=== PATIENT | male | born 1950 | race Caucasian/White ===

== ENCOUNTER 2018-08-29 22:10 | Inpatient (IN) | payer OTHER ==
[~2018-08-29] VITALS: Ht 182.9 cm; Wt 114.8 kg
--- NOTE | ~2018-08-29 | HC ---
[facility] [address] [place] [address] CONSULTATION Name: PEPEGRACE Concha Room #: 236-P [facility] IN M.R.#: [id number] Admission: 08/29/18 ������������������ Attend Phys: Zuleyka Godinez Discharge: ������������������ Date of : 50 Report #: [id number] THIS REPORT FOR: //name// CC: NO PCP Barry Hernandez REASON FOR CONSULTATION: Acute kidney injury. The details of the history were obtained from the chart. The patient is not able to provide me with the history. HISTORY OF PRESENT ILLNESS: A 68-year-old who presented to the emergency room in an unconscious status. He had issues with abdominal pain, rectal bleeding. CPR was initiated and EMS was called. He has had multiple arrests. He was intubated, admitted to the ICU. CT revealed free air in the soft tissue in the perineal area with what seems to be localized perforation. The patient's creatinine on presentation was 1.6. I am not able to obtain any previous values on him. His medical history is very vague. With his arrest, he was initiated on hypothermia. Urine output has significantly dropped in the last 24 hours. Creatinine is up to 3.9. The patient has had multiple organ failures with severe acidosis. The pH was down to 7.2. White blood cell count was up to 12.6. REVIEW OF SYSTEMS: Unobtainable given the patient's mental status. PAST MEDICAL HISTORY: Unobtainable given the patient's mental status. ALLERGIES: Unobtainable given the patient's mental status. MEDICATIONS AN OUTPATIENT: None. FAMILY HISTORY: Unobtainable given the patient's mental status. PHYSICAL EXAMINATION: GENERAL: The patient is intubated on max pressors. VITAL SIGNS: Blood pressure is 124/55. He is on Danny-Synephrine, Levophed, vasopressin. HEAD AND NECK: ET tube. Pupils fixed and constricted. CHEST: Decreased air entry bilaterally. CARDIOVASCULAR: No rub. ABDOMEN: Soft. LOWER EXTREMITIES: No edema. LABORATORY DATA: Reviewed. White blood cell count 12.6, hemoglobin 10.4, platelets 101. Sodium 139, potassium 4.6, BUN is 51, creatinine is 3.9. Cultures are negative so far. [facility] [address] [place] [address] CONSULTATION Name: GRACE PEPE Room #: 236-P [facility] IN ..#: [id number] Admission: 08/29/18 ������������������ Attend Phys: Zuleyka Godinez Discharge: ������������������ Date of : 50 Report #: [id number] abdomen reviewed consolidation consistent with pneumonia, gas present adjacent to the rectum. ASSESSMENT, IMPRESSION AND PLAN: 1. Post-arrest. 2. Post-hypothermia protocol. 3. Acidosis. 4. Multiorgan failure. 5. Acute kidney injury. 6. Respiratory failure. 7. Localized perforation of the rectal area. 8. Very poor prognosis, really nothing to be done from the renal perspective given his mental status and the multiorgan failure, should gear towards palliative and comfort care. I will address with his family members. Meanwhile, continue with the hemodynamic support. I will reformulate his fluid to address his acidosis. ��������������������������������������������� ���������������������������������������� By: ��������������������������������������������� 0837 0037 Nelida Cuevas MD /nt
[2018-08-29 22:12] VITALS: BP 130/55
[2018-08-29 22:27] LABS: BE(vivo) -14.9 mmol/L (-2 to +3); HCO3 17.7 mmol/L (22.0-26.0); PO2 174.2 mmHg (80.0-100.0); sO2 98.2 % (92.0-98.0)
[2018-08-29 22:28] LABS: PCO2 74.6 mmHg (35.0-45.0)
[2018-08-29 22:29] LABS: pH 6.992 (7.360-7.450)
[2018-08-29 22:47] LABS: URINE BILIRUBIN NEGATIVE (Negative); URINE BLOOD NEGATIVE (Negative); URINE CLARITY CLEAR; URINE COLOR YELLOW; URINE GLUCOSE-RANDOM* NEGATIVE (Negative); URINE KETONES NEGATIVE (Negative); URINE LEUKOCYTES-REFLEX NEGATIVE (Negative); URINE NITRITE-REFLEX NEGATIVE (Negative); URINE PROTEIN (DIPSTICK) NEGATIVE (Negative); URINE UROBILINOGEN 0.2 E.U./dl (0.2-1.0)
[2018-08-29 22:54] LABS: ANION GAP 18 mmol/L (7-16); BUN 16 mg/dL (7-18); CALCIUM 8.8 mg/dL (8.5-10.1); CHLORIDE 97 mmol/L (98-107); CO2 20 mmol/L (21-32); CREATININE 1.8 mg/dL (0.7-1.3); GLUCOSE 329 mg/dL (74-106); POTASSIUM 3.2 mmol/L (3.5-5.1); SODIUM 135 mmol/L (136-145)
[2018-08-29 22:56] LABS: APTT 21.5 Seconds (24.5-32.8); PROTIME 10.6 Seconds (9.3-11.4)
[2018-08-29 22:56] LABS: AMP/METHAMP Negative (Negative); BARBITURATES Negative (Negative); BENZODIAZEPINES Negative (Negative); COCAINE Negative (Negative); METHADONE Negative (Negative); OPIATES Negative (Negative); PCP Negative (Negative)
[2018-08-29 22:58] LABS: HEMATOCRIT 38.9 % (42.0-52.0); HEMOGLOBIN 12.7 gm/dL (14.0-18.0); MCH 32.4 pg (26.0-34.0); MCHC 32.7 g/dL (28.0-37.0); MCV 99.1 fL (80.0-100.0); PLATELET COUNT 220 thou/uL (150-400); RBC 3.93 mil/uL (4.50-6.00); RDW 13.2 % (10.5-14.5); WBC 13.8 thou/uL (4.0-11.0)
--- NOTE | 2018-08-29 23:01 | NUR ---
SEE CODE BLUE SHEET FOR CPR AND CARDIAC RHYTHMS
[2018-08-29 23:03] LABS: ALBUMIN 3.7 g/dL (3.4-5.0); MAGNESIUM 2.6 mg/dL (1.8-2.4); SGOT 66 U/L (15-37); SGPT 65 U/L (30-65); TOTAL BILIRUBIN 0.9 mg/dL (<0.1-1.0); TOTAL PROTEIN 6.9 g/dL (6.4-8.2); TROPONIN-I <0.06 ng/mL (<0.06)
[2018-08-29 23:44] LABS: ABSOLUTE NEUTROPHILS 6.1 thou/uL (1.4-8.2); ATYPICAL LYMPHS 1 %; METAMYELOCYTES 1 %; MYELOCYTES 1 %; NUCLEATED RBCS 2 /100WBC
[2018-08-29 23:45] VITALS: BP 147/69
[2018-08-30] VITALS (70 sets, daily range): BP systolic 84–176; BP diastolic 32–86
[2018-08-30 00:16] LABS: BE(vivo) -7.1 mmol/L (-2 to +3); HCO3 20.3 mmol/L (22.0-26.0); PCO2 47.8 mmHg (35.0-45.0); PO2 75.1 mmHg (80.0-100.0); sO2 92.7 % (92.0-98.0)
[2018-08-30 00:17] LABS: pH 7.246 (7.360-7.450)
[2018-08-30 00:35] LABS: HEMATOCRIT 40.6 % (42.0-52.0); HEMOGLOBIN 13.7 gm/dL (14.0-18.0); MCHC 33.7 g/dL (28.0-37.0); RBC 4.27 mil/uL (4.50-6.00); WBC 9.6 thou/uL (4.0-11.0)
[2018-08-30 00:58] LABS: ALBUMIN 3.7 g/dL (3.4-5.0); CALCIUM 8.2 mg/dL (8.5-10.1); CREATININE 1.6 mg/dL (0.7-1.3); POTASSIUM 3.5 mmol/L (3.5-5.1); TOTAL BILIRUBIN 0.8 mg/dL (<0.1-1.0); TOTAL PROTEIN 6.8 g/dL (6.4-8.2)
[2018-08-30 05:18] LABS: BE(vivo) -6.4 mmol/L (-2 to +3); HCO3 21.4 mmol/L (22.0-26.0); PCO2 51.5 mmHg (35.0-45.0); PO2 347.8 mmHg (80.0-100.0); sO2 99.7 % (92.0-98.0)
[2018-08-30 05:19] LABS: pH 7.236 (7.360-7.450)
[2018-08-30 06:19] LABS: ABSOLUTE NEUTROPHILS 2.9 thou/uL (1.4-8.2); BASOPHILS 0.4 % (0.0-2.0); EOSINOPHILS 0.3 % (0.0-3.0); LYMPHOCYTES 11.5 % (24.0-44.0); MCH 33.7 pg (26.0-34.0); MCHC 35.9 g/dL (28.0-37.0); MCV 93.9 fL (80.0-100.0); MONOCYTES 2.6 % (1.0-8.0); PLATELET COUNT 187 thou/uL (150-400); POLYS 85.2 % (36.0-66.0); RBC 4.16 mil/uL (4.50-6.00); RDW 13.3 % (10.5-14.5); WBC 3.4 thou/uL (4.0-11.0)
[2018-08-30 06:53] LABS: CHOLESTEROL 65 mg/dL (<200); HDL CHOLESTEROL 27 mg/dL (>40); TC:HDL 2.4 Ratio (Not establshd); TRIGLYCERIDE 671 mg/dL (<150); VLDL 134 mg/dL (<40)
[2018-08-30 06:54] LABS: CALCIUM 7.3 mg/dL (8.5-10.1); CREATININE 1.7 mg/dL (0.7-1.3); MAGNESIUM 1.8 mg/dL (1.8-2.4); PHOSPHORUS 4.4 mg/dL (2.5-4.9)
[2018-08-30 06:58] LABS: POTASSIUM 2.7 mmol/L (3.5-5.1); TROPONIN-I 0.99 ng/mL (<0.06)
[2018-08-30 07:29] LABS: FIBRINOGEN 207.1 mg/dL (210-360); INR 1.1; PROTIME 11.8 Seconds (9.3-11.4)
[2018-08-30 07:34] LABS: BE(vivo) -6.4 mmol/L (-2 to +3); HCO3 19.6 mmol/L (22.0-26.0); PCO2 40.6 mmHg (35.0-45.0); PO2 157.9 mmHg (80.0-100.0); sO2 98.9 % (92.0-98.0)
[2018-08-30 07:37] LABS: APTT 28.6 Seconds (24.5-32.8); D-DIMER 22.31 ug/mLFEU (0.19-0.50)
--- NOTE | 2018-08-30 07:44 | NUR ---
PT ARRIVED FROM ED AT APROX 0030. PT INTUBATED IN ED PRIOR TO ADMISSION TO ICU. GCS 3. DOES NOT OPEN EYES, NONVERBAL, NO PURPOSEFUL MOVEMENT, NO RESPONSE TO PAINFUL STIMULI, NO COUGH, DIMINISHED GAG REFLEX, PUPILS FIXED. BUE MYOCLONUS, CONTROLLED WITH PROPOFOL GTT. PROPOFOL DOES NOT APPEAR TO AFFECT IMPACT PT'S LOC. WILL REFER TO MTN. HYPOTHERMIA PROTOCOL INITIATED AT 0215. 33 DEGREES REACHED AT 0630. SINUS RHYTHM ON MONITOR. LUNGS COARSE TO AUSCULTATION. MODERATE VOLUME THICK MAY SPUTUM AND ORAL SECRETIONS. CHEST FLAIL AND ACCESSORY MUSCLE USE VISIBLE. OG TUBE TO LIS. BROWN/GREEN GASTRIC CONTENTS. PT BLEEDING FROM RECTUM ON ADMIT. NO LONGER BLEEDING AT THIS TIME. PT ACCOMPANIED BY 2 INDIVIDUALS: A SIGNIFICANT OTHER (GRACE) & A FRIEND (ROMEO). THEY WERE ABLE TO PROVIDE LIMITED INFORMATION REGARDING THE PT'S MEDICAL HISOTRY. THEY COULD NOT PROVIDE A LIST OF CURRENT MEDICIATIONS BUT KNEW THE PATIENT TO BE TAKING TRUVADA AND MULTIPLE ANTIHYPERTENSIVES. PT'S BROTHER, JHOANA, IS THE DPOA. ATTEMPTING TO CONTACT AT THIS TIME.
--- NOTE | 2018-08-30 08:06 | NUR ---
HYPOTHERMIA PROTOCOL INITIATED: 08/30 AT 0215. [employer] TEMPERATURE OF 33 DEGREES CELSIUS REACHED: 08/30 AT 0630.
--- NOTE | 2018-08-30 08:45 | EKG ---
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 : 1950 Requested By: Ernie العلي Order Number: [id number] MD: Darin Mahan Measurements Intervals [place] Rate: 68 P: 61 CA: 182 QRS: 2 QRSD: 100 T: 22 QT: 446 QTc: 475 Interpretive Statements Sinus rhythm Nonspecific ST segment abnormality No previous ECG available for comparison Electronically Signed On 08-30-2018 8:45:09 CDT by Darin Mahan [email or web address] ��������������������������������������������� <ELECTRONICALLY SIGNED> ���������������������������������������� By: Darin Mahan MD, [facility] ��������������������������������������������� 08/30/18 0845 2237 36 Darin Mahan MD, FACC /EPI
--- NOTE | 2018-08-30 10:45 | 2DMMODE ---
[facility] [address] [place] [address] 2 D/M-MODE ECHOCARDIOGRAM Name: GRACE PEPE Room #: 236-P ADM IN .R.#: [id number] ������������� Admission: 08/29/18 ������������� Attend Phys: Barry Mosley Discharge: ��� ������������� ��� Date of : 50 Date of Service: 08/30/18 1045 �� Report #: [id number] �������� ��������������������������������������������[id number] THIS REPORT FOR: //name// APPROVED REPORT Study performed: 08/30/2018 09:17:03 EXAM: Comprehensive 2D, Doppler, and color-flow Echocardiogram Patient Location: ICU Room #: 236 Status: routine BSA: 2.02 HR: 64 bpm BP: 108/59 mmHg Rhythm: NSR Other Information Study Quality: Adequate Indications S^P Arrest 2D Dimensions RVDd: 34.19 mm IVSd: 10.63 (7-11mm) LVOT Diam: 22.50 (18-24mm) LVDd: 52.44 mm PWd: 10.64 (7-11mm) Ascending Ao: 37.13 (22-36mm) LVDs: 27.81 (25-40mm) Aortic Root: 39.36 mm IVC: 15.00 mm Volumes Left Atrial Volume (Systole) Single Plane 4CH: 44.16 mL Single Plane 2CH: 42.46 mL LA ESV Index: 26.00 mL/m2 Aortic Valve AoV Peak Angelo.: 1.63 m/s AO Peak Gr.: 10.61 mmHg LVOT Max P.98 mmHg LVOT Max V: 1.32 m/s TIA Vmax: 3.23 cm2 Mitral Valve E/A Ratio: 0.7 MV Decel. Time: 319.25 ms MV E Max Angelo.: 0.70 m/s [facility] [address] [place] [address] 2 D/M-MODE ECHOCARDIOGRAM Name: GRACE PEPE Room #: 236-P [facility] IN ..#: [id number] ������������� Admission: 08/29/18 ������������� Attend Phys: Barry Mosley Discharge: ��� ������������� ��� Date of : 50 Date of Service: 08/30/18 1045 �� Report #: [id number] �������� ��������������������������������������������[id number] MV A Angelo.: 0.95 m/s MV PHT: 92.58 ms IVRT: 152.25 ms Pulmonary Valve PV Peak Angelo.: 1.24 m/s PV Peak Gr.: 6.13 mmHg Pulmonary Vein P Vein S: 0.55 m/s P Vein A: 0.20 m/s P Vein D: 0.28 m/s P Vein A Dur.: 115.3 msec P Vein S/D Ratio: 1.96 Tricuspid Valve TR Peak Angelo.: 3.04 m/s TR Peak Gr.: 36.99 mmHg PA Pressure: 42.00 mmHg Left Ventricle The left ventricle is normal size. There is normal left ventricular wall thickness. The left ventricular systolic function is normal. The left ventricular ejection fraction is within the normal range. LVEF is 60-65%. Grade I - abnormal relaxation pattern. Right Ventricle The right ventricle is normal size. The right ventricular systolic function is normal. Atria The left atrium size is normal. The right atrium size is normal. Aortic Valve The aortic valve is normal in structure. No aortic regurgitation is present. There is no aortic valvular stenosis. Mitral Valve The mitral valve is normal in structure. There is no mitral valve regurgitation noted. No evidence of mitral valve stenosis. Tricuspid Valve The tricuspid valve is normal in structure. There is trace tricuspid regurgitation. Estimated PAP 42 mmHg. There is moderate pulmonary hypertension. Pulmonic Valve The pulmonary valve is normal in structure. There is no pulmonic [address] [address] 2 D/M-MODE ECHOCARDIOGRAM Name: PEPEGRACE Room #: 236-P [facility] IN [facility]#: [id number] ������������� Admission: 08/29/18 ������������� Attend Phys: Barry Mosley Discharge: ��� ������������� ��� Date of : 50 Date of Service: 08/30/18 1045 �� Report #: [id number] �������� ��������������������������������������������[id number] valvular regurgitation. Great Vessels The aortic root is normal in size. IVC is normal in size and collapses >50% with inspiration. Pericardium There is no pericardial effusion. <Conclusion> The left ventricle is normal size. There is normal left ventricular wall thickness. The left ventricular systolic function is normal. Grade I - abnormal relaxation pattern. The right ventricle is normal size. The left atrium size is normal. The right atrium size is normal. The aortic valve is normal in structure. There is no mitral valve regurgitation noted. There is trace tricuspid regurgitation. Estimated PAP 42 mmHg. ��������������������������������������������� <ELECTRONICALLY SIGNED> ���������������������������������������� By: Ellis Suarez MD ��������������������������������������������� 08/30/18 1045 1045 1045 Ellis Suarez MD /INF
[2018-08-30 10:56] LABS: BE(vivo) -6.9 mmol/L (-2 to +3); HCO3 19.2 mmol/L (22.0-26.0); PCO2 40.7 mmHg (35.0-45.0); PO2 114.2 mmHg (80.0-100.0); sO2 97.7 % (92.0-98.0)
[2018-08-30 10:58] LABS: pH 7.291 (7.360-7.450)
[2018-08-30 10:59] LABS: pH 7.301 (7.360-7.450)
[2018-08-30 12:20] LABS: HEMATOCRIT 38.4 % (42.0-52.0); HEMOGLOBIN 13.1 gm/dL (14.0-18.0); MCH 32.3 pg (26.0-34.0); MCV 94.8 fL (80.0-100.0); PLATELET COUNT 139 thou/uL (150-400); RBC 4.05 mil/uL (4.50-6.00); RDW 13.5 % (10.5-14.5); WBC 2.4 thou/uL (4.0-11.0)
[2018-08-30 12:30] LABS: APTT 30.8 Seconds (24.5-32.8); INR 1.1; PROTIME 11.4 Seconds (9.3-11.4)
[2018-08-30 12:37] LABS: CALCIUM 7.4 mg/dL (8.5-10.1); CREATININE 1.9 mg/dL (0.7-1.3); MAGNESIUM 1.8 mg/dL (1.8-2.4); PHOSPHORUS 4.1 mg/dL (2.5-4.9); POTASSIUM 3.5 mmol/L (3.5-5.1)
[2018-08-30 12:43] LABS: TROPONIN-I 0.85 ng/mL (<0.06)
[2018-08-30 12:47] LABS: ABSOLUTE NEUTROPHILS 1.3 thou/uL (1.4-8.2); PLATELET ESTIMATE NORMAL; POLYCHROMASIA 1+
--- NOTE | 2018-08-30 15:11 | NUR ---
CM ASSESSMENT: CASE OPENED FOR DC PLANNING. CLINICAL INFO REVIEWED. PT ADMITS AFTER OUTSIDE HOSPITAL CARDIAC ARREST AND IS ON VENT ON HYPOTHERMIA PROTOCOL, SEDATED. SPOKE WITH PT'S BROTHER/DPOA LYNNE PEPE WHO LIVES IN [facility]. LYNNE SPOUSE CHELSEY IS THE ALTERNATE ON MEDICAL DPOA. 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 PT GOES BY [place]RE TO FAMILY. PT'S FRIEND GRACE WAS ABLE TO BRING IN PT'S AD/DPOA DOCUMENT AND COPY PLACED IN CHART. HOSPITALIST PROVIDED WITH PT'S BROTHER'S CONTACT # AND WILL CALL LYNNE. WILL FOLLOW FOR REWARMING AND NEURO RECOVERY AND ASSIST WITH COORDINATION OF ANY DC NEEDS NEEDED.
[2018-08-30 15:34] LABS: FIBRINOGEN 258.6 mg/dL (210-360)
[2018-08-30 15:42] LABS: D-DIMER 19.69 ug/mLFEU (0.19-0.50)
[2018-08-30 16:56] LABS: BE(vivo) -8.6 mmol/L (-2 to +3); HCO3 19.9 mmol/L (22.0-26.0); PCO2 53.1 mmHg (35.0-45.0); PO2 108.8 mmHg (80.0-100.0); sO2 96.8 % (92.0-98.0)
[2018-08-30 16:59] LABS: pH 7.191 (7.360-7.450)
[2018-08-30 20:06] LABS: HEMATOCRIT 37.8 % (42.0-52.0); HEMOGLOBIN 12.9 gm/dL (14.0-18.0); MCH 32.1 pg (26.0-34.0); MCV 94.3 fL (80.0-100.0); PLATELET COUNT 91 thou/uL (150-400); RBC 4.01 mil/uL (4.50-6.00); RDW 13.4 % (10.5-14.5)
[2018-08-30 20:19] LABS: APTT 33.7 Seconds (24.5-32.8); INR 1.1; PROTIME 11.4 Seconds (9.3-11.4)
[2018-08-30 20:26] LABS: CALCIUM 7.2 mg/dL (8.5-10.1); MAGNESIUM 1.6 mg/dL (1.8-2.4); PHOSPHORUS 4.2 mg/dL (2.5-4.9); TROPONIN-I 0.48 ng/mL (<0.06)
[2018-08-30 20:29] LABS: POTASSIUM 2.6 mmol/L (3.5-5.1)
[2018-08-30 20:53] LABS: ABSOLUTE NEUTROPHILS 0.8 thou/uL (1.4-8.2); ANISOCYTOSIS 1+; POLYCHROMASIA OCCASIONAL
[2018-08-30 21:07] LABS: WBC 1.3 thou/uL (4.0-11.0)
[2018-08-31] VITALS (49 sets, daily range): BP systolic 90–145; BP diastolic 41–62
[2018-08-31 01:32] LABS: HEMATOCRIT 37.5 % (42.0-52.0); MCH 32.8 pg (26.0-34.0); MCHC 34.6 g/dL (28.0-37.0); MCV 94.8 fL (80.0-100.0); PLATELET COUNT 122 thou/uL (150-400); RBC 3.95 mil/uL (4.50-6.00); RDW 13.4 % (10.5-14.5); WBC 2.4 thou/uL (4.0-11.0)
[2018-08-31 01:45] LABS: CALCIUM 7.1 mg/dL (8.5-10.1); CREATININE 2.1 mg/dL (0.7-1.3); MAGNESIUM 1.9 mg/dL (1.8-2.4); PHOSPHORUS 4.1 mg/dL (2.5-4.9); POTASSIUM 3.1 mmol/L (3.5-5.1); TROPONIN-I 0.29 ng/mL (<0.06)
[2018-08-31 01:46] LABS: APTT 35.8 Seconds (24.5-32.8); INR 1.1; PROTIME 11.3 Seconds (9.3-11.4)
[2018-08-31 05:36] LABS: BE(vivo) -12.9 mmol/L (-2 to +3); HCO3 17.1 mmol/L (22.0-26.0); PCO2 56.9 mmHg (35.0-45.0); PO2 90.7 mmHg (80.0-100.0); sO2 93.4 % (92.0-98.0)
[2018-08-31 05:38] LABS: pH 7.095 (7.360-7.450)
--- NOTE | 2018-08-31 07:27 | NUR ---
ASSUMED PATIENT CARE AT 1900. PATIENT LYING IN BED ON THE VENTILATOR WITH HYPOTHERMIA PROTOCOL CURRENTLY IN PLACE. PATIENT IS UNRESPONSIVE AND IS WITHOUT CORNEA AND GAG REFLEX. MTN HAS PREVIOUSLY BEEN NOTIFIED. PATIENT TAKEN FOR AN ABD/PELVIC CT SCAN THAT SHOWED A PERFORATED RECTUM. PER DR. TRAORE, TREAT DIVERTICULITIS WITH IV ABX. DR. JARRETT AGREES WITH THE PLAN OF CARE. ADDITIONALY, ID WAS CONSULTED D/T PATIENT HAVING A POSITIVE SET OF BLOOD CX THAT SHOWS GRAM + WITH RODS AND ALSO BECAUSE PATIENT'S WBC'S WERE 13.8 ON ADMISSION 2 DAYS AGO AND HAVE DROPPED CRITICALLY LOW TO 1.3. DR. SEGURA WAS CALLED. PATIENT WAS ALSO PLACED ON LEVOPHED TO KEEP MAP >80 AND AN INSULIN GTT PER PROTOCOL. PATIENT ALSO HAD A DECREASE IN URINE OUTPUT DURING THIS SHIFT AND DR. COTTRELL REQUESTS TO NOTIFY HIM IF THE URINE OUTPUT DOESNT PICK BACK UP AFTER LASIX IVP GIVEN. ALSO, PATIENT BEGAN DESATING TO LOW 90'S AND FIO2 WAS INCREASED FROM [address] COTTRELL NOTIFIED OF ABG RESULTS AND THE INCREASE. ORDERS RECEIVED. NOT PROGRESSING TOWARDS THE PLAN OF CARE. WILL CONTINUE TO MONITOR.
[2018-08-31 08:15] LABS: BE(vivo) -10.8 mmol/L (-2 to +3); HCO3 19.2 mmol/L (22.0-26.0); PCO2 60.9 mmHg (35.0-45.0); PO2 86.1 mmHg (80.0-100.0); pH 7.116 (7.360-7.450); sO2 92.8 % (92.0-98.0)
[2018-08-31 08:36] LABS: CREATININE 2.4 mg/dL (0.7-1.3); POTASSIUM 3.7 mmol/L (3.5-5.1)
[2018-08-31 11:00] LABS: BE(vivo) -10.2 mmol/L (-2 to +3); HCO3 19.7 mmol/L (22.0-26.0); PCO2 61.6 mmHg (35.0-45.0); PO2 83.4 mmHg (80.0-100.0); pH 7.123 (7.360-7.450); sO2 92.3 % (92.0-98.0)
[2018-08-31 12:48] LABS: CALCIUM 7.1 mg/dL (8.5-10.1); CREATININE 2.6 mg/dL (0.7-1.3); POTASSIUM 3.8 mmol/L (3.5-5.1)
[2018-08-31 14:47] LABS: BE(vivo) -7.2 mmol/L (-2 to +3); HCO3 22.2 mmol/L (22.0-26.0); PCO2 63.2 mmHg (35.0-45.0); pH 7.164 (7.360-7.450)
[2018-08-31 17:56] LABS: BE(vivo) -6.8 mmol/L (-2 to +3); HCO3 21.4 mmol/L (22.0-26.0); PCO2 55.1 mmHg (35.0-45.0); PO2 72.8 mmHg (80.0-100.0); pH 7.208 (7.360-7.450); sO2 91.1 % (92.0-98.0)
[2018-08-31 18:06] LABS: CALCIUM 6.9 mg/dL (8.5-10.1); CREATININE 3.1 mg/dL (0.7-1.3); POTASSIUM 3.9 mmol/L (3.5-5.1)
--- NOTE | 2018-08-31 19:32 | NUR ---
PATIENT ON LIGHT SEDATION AND VENTILATOR. VENTILATOR SETTING DECREASED TO 50%FIO2. PATIENT DOES NO FOLLOW COMMANDS OR RESPOND TO PAINUL STIMULI. SINUS TACHYCARDIA ON LUBRICATION TECHNICIAN, DR. COTTRELL, DR. GAGNON, AND DR. CARPIO AWARE. OG TUBE TO LOW INTERMITTENT SUCTION. ROOT PATENT WITH MINIMAL OUTPUT. RIGHT CENTRAL LINE INTACT. BLOOD PRESSURE SUPPORT TO KEEP MAP ABOVE 60. BLOOD SUGAR, URINE OUTPUT, AND LABWORK CLOSELY MONITORED. PATIENT REACHED REWARMING GOAL ON HYPOTHERMIA PROTOCOL. FAMILY UPDATED ON THE PLAN OF CARE. NO SIGNS OF ACUTE DISTRESS NOTED AT THIS TIME. WILL CONTINUE TO MONITOR.
[2018-08-31 21:50] LABS: CALCIUM 6.7 mg/dL (8.5-10.1); CREATININE 3.4 mg/dL (0.7-1.3)
[2018-08-31 22:05] LABS: HEPATITIS B SURFACE AG Negative (Negative); HIV ANTIBODY Non Reactive (Non Reactive)
[2018-08-31 22:07] LABS: HCO3 21.1 mmol/L (22.0-26.0); PCO2 47.9 mmHg (35.0-45.0); PO2 94.6 mmHg (80.0-100.0); pH 7.261 (7.360-7.450); sO2 96.2 % (92.0-98.0)
[2018-09-01] VITALS (96 sets, daily range): BP systolic 91–148; BP diastolic 35–76
--- NOTE | 2018-09-01 04:47 | NUR ---
ASSUMED PATIENT CARE AT 1900. PATIENT LYING IN BED ON THE VENTILATOR WITH PROPOFOL INFUSING. PATIENT IS NOTED TO BE TACHYCARDIC WITH A LOW BLOOD PRESSURE. STARTED PATIENT ON NEOSYN WHICH ALONG WITH LEVOPHED DID NOT WORK TO INCREASE THE BP/MAP. DR COTTRELL NOTIFIED AND VASOPRESSIN WAS ORDERED. PATIENT'S BP BECAME MORE STABLE. ADDITIONALLY, PATIENT RECEIVED 100 MG OF LASIX AROUND 1900 AND HAS ONLY MINIMAL URINE OUTPUT (85 ML OVER [address] COTTRELL ALSO NOTIFIED OF THIS AND HE WANTED TO CONSULT RENAL IN THE AM. PATIENT REMAINS WITHOUT A CORNEAL, GAG, AND COUGH REFLEX AND ISN'T PROGRESSING TOWARDS THE CARE PLAN. WILL CONTINUE TO MONITOR.
[2018-09-01 05:50] LABS: HEMATOCRIT 30.2 % (42.0-52.0); MCH 32.6 pg (26.0-34.0); MCHC 34.5 g/dL (28.0-37.0); MCV 94.5 fL (80.0-100.0); PLATELET COUNT 101 thou/uL (150-400); RBC 3.19 mil/uL (4.50-6.00); RDW 13.4 % (10.5-14.5)
[2018-09-01 05:50] LABS: BE(vivo) -8.8 mmol/L (-2 to +3); HCO3 18.1 mmol/L (22.0-26.0); PCO2 43.2 mmHg (35.0-45.0); sO2 97.2 % (92.0-98.0)
[2018-09-01 05:51] LABS: pH 7.241 (7.360-7.450)
[2018-09-01 05:53] LABS: HEMOGLOBIN 10.4 gm/dL (14.0-18.0); WBC 12.6 thou/uL (4.0-11.0)
[2018-09-01 06:08] LABS: ALBUMIN 1.9 g/dL (3.4-5.0); CALCIUM 6.5 mg/dL (8.5-10.1); CREATININE 3.9 mg/dL (0.7-1.3); POTASSIUM 4.6 mmol/L (3.5-5.1); TOTAL BILIRUBIN 1.6 mg/dL (<0.1-1.0); TOTAL PROTEIN 4.9 g/dL (6.4-8.2)
[2018-09-01 06:23] LABS: ABSOLUTE NEUTROPHILS 11.1 thou/uL (1.4-8.2)
[2018-09-01 06:24] LABS: PLATELET ESTIMATE DECREASED
[2018-09-01 06:25] LABS: ANISOCYTOSIS 1+; BURR CELLS 1+; POLYCHROMASIA 1+
[2018-09-01 12:28] LABS: BE(vivo) -7.7 mmol/L (-2 to +3); HCO3 18.2 mmol/L (22.0-26.0); PCO2 38.8 mmHg (35.0-45.0); PO2 115.4 mmHg (80.0-100.0); sO2 97.8 % (92.0-98.0)
[2018-09-01 12:58] LABS: CALCIUM 6.2 mg/dL (8.5-10.1); CREATININE 4.5 mg/dL (0.7-1.3); POTASSIUM 4.7 mmol/L (3.5-5.1)
--- NOTE | 2018-09-01 17:24 | HC ---
[facility] [address] [place] [address] CONSULTATION Name: AFSHINGRACE Concha Room #: 236-P [facility] IN M.R.#: [id number] Admission: 08/29/18 ������������������ Attend Phys: Zuleyka Godinez Discharge: ������������������ Date of : 50 Report #: [id number] THIS REPORT FOR: //name// CC: NO PCP Barry Hernandez DATE OF SERVICE: 08/30/2018 REFERRING PHYSICIAN: Dr. Tim. REASON FOR REFERRAL: Cardiac arrest. HISTORY OF PRESENT ILLNESS: The patient is a 68-year-old white male who was brought to the ED following cardiac arrest. According to records, the patient was having sex with his partner a bit. They were apparently fisting one another. According to the patient's partner, patient had complained of having pain. Fentanyl patch was placed. The patient subsequently became unresponsive. 911 was called. The patient was out for several minutes until EMS arrived. When they arrived, the patient was found to be in asystole, PEA. He was given 2 rounds of narcotics and epinephrine. I-gel was placed. The patient was subsequently intubated and brought to the Emergency Room. En route to the ED, CPR was given as the patient remained pulseless. Following additional epinephrine, systolic blood pressure was said to be 90 mmHg. Central line was placed. He was then transferred to the ICU. Currently, he remains obtunded. Hemodynamically stable, on vasopressors. He is currently undergoing hypothermia protocol. PAST MEDICAL HISTORY: Incomplete. MEDICATIONS: According to the medicine list, patient had been on fentanyl patch along with antiviral agent for HIV, status of this is unclear. FAMILY HISTORY: Unknown. SOCIAL HISTORY: Unknown. He has a partner. His first partner after 27 years together. He has a brother who lives out of state, who is the [facility]. I believe he has adopted children. ALLERGIES: UNKNOWN. REVIEW OF SYSTEMS: Deferred as the patient is obtunded. PHYSICAL EXAMINATION: GENERAL: He is unresponsive. VITAL SIGNS: Current temperature is 92 degrees Fahrenheit, pulse is 60, [facility] [address] [place] [address] CONSULTATION Name: PEPEGRACE Room #: 236-P [facility] IN ..#: [id number] Admission: 08/29/18 ������������������ Attend Phys: Zuleyka Godinez Discharge: ������������������ Date of : 50 Report #: [id number] respiratory rate is 16, blood pressure is 150/78 mmHg, saturation 97%. HEENT: Normocephalic, atraumatic. NECK: Supple without lymphadenopathy or thyromegaly. CHEST: Breath sounds are clear anteriorly without any rales or wheezes. CARDIOVASCULAR: Normal S1, S2. No murmurs or gallop. There is no JVD. There is no carotid bruit. Pulses are 2+/4+ bilaterally. ABDOMEN: Soft. No obvious masses. GENITOURINARY AND RECTAL: Deferred. EXTREMITIES: There is no edema, cyanosis or clubbing. NEUROLOGICAL: Deferred at this time. The patient is unresponsive. LABORATORY DATA: Portable chest x-ray shows vascular congestion, ET tube above the jackeline around 2.5 cm. Alcohol level was less than 10. Urine drug screen was negative. BNP is 245. Lactic acid is 3.7. EKG shows sinus rhythm, nonspecific ST-T wave changes. Echocardiogram shows normal LV function, no significant valvular abnormalities. Pulmonary artery pressure around 42. CT abdomen and pelvis revealed dense consolidation of both lower lung rogers, greater in the left than the right. Mild wall thickening of the distal transverse colon and descending colon, marked cervical frontal thickening of the rectum with surrounding inflammation and edema. Multiple foci of extraluminal gas present adjacent to the rectum suggestive for possible perforation. There are no obvious areas of perforation in this region. CT head was grossly unremarkable. There is motion artifact noted. ADDITIONAL LABORATORY DATA: Electrolytes: Sodium 136, potassium 3.5, chloride 100, CO2 is 23, BUN is 20, creatinine is 1.6. Liver enzymes are moderately elevated. WBC 2400, hemoglobin 13.1, platelets are mildly reduced. Albumin 3.7. Arterial blood gas revealed pH 6.99, pCO2 on FiO2 100%. IMPRESSION: 1. Cardiac arrest, pulseless, apneic. The patient was initially asystolic with subsequent PEA, now undergoing hypothermia protocol. Etiology is unclear, but suspect may be related to profound hypotension related to fentanyl use. Cannot rule out cardiac etiology. Pulmonary embolus is felt to be less likely. 2. Bilateral lower lobe infiltrates, question of aspiration. Will needed to be treated for presumed aspiration pneumonia. 3. Apparent rectal trauma, bleeding, possible perforation. Currently, the patient appears to have signs and symptoms of severe sepsis with hypotension, leukocytosis, oliguria. Broad spectrum antibiotic is recommended. 4. Human immunodeficiency virus risk factors. The patient apparently has been on antiviral agent. Unclear of the patient's status. This need to be verified once family arrives. 5. Acute kidney injury along with oliguria due to acute tubular necrosis related to hypotension, severe sepsis, etc. 6. Acute hypoxic respiratory failure due to above along with probable aspiration pneumonia. [facility] [address] [place] [address] CONSULTATION Name: GRACE PEPE Room #: 236-P ADM IN .#: [id number] Admission: 08/29/18 ������������������ Attend Phys: Zuleyka Godinez Discharge: ������������������ Date of : 50 Report #: [id number] 7. Severe acidosis, mixed metabolic and respiratory. 8. Elevated liver enzymes due to shock liver. 9. Neutropenia, likely due to severe sepsis. 10. Elevated troponin due to above cardiac arrest. RECOMMENDATION: We will continue mechanical ventilation, complete hypothermia protocol, further recommendation pending further evaluation regarding intraabdominal process. Broad spectrum antibiotics are recommended. Eventually, the patient will need to be assessed neurologic status given the unknown downtime with probable hypoxic and brain injury. Thank you for this consultation. Critical care 1 hour. ��������������������������������������������� <ELECTRONICALLY SIGNED> ���������������������������������������� By: Messi Mcclain MD ��������������������������������������������� 09/01/18 1724 1534 0540 Messi Mcclain MD /nt
[2018-09-02] VITALS (56 sets, daily range): BP systolic 64–165; BP diastolic 32–82
[2018-09-02 05:06] LABS: HEMATOCRIT 24.5 % (42.0-52.0); HEMOGLOBIN 8.5 gm/dL (14.0-18.0); MCH 32.3 pg (26.0-34.0); MCHC 34.6 g/dL (28.0-37.0); MCV 93.2 fL (80.0-100.0); RBC 2.63 mil/uL (4.50-6.00); RDW 13.3 % (10.5-14.5); WBC 14.2 thou/uL (4.0-11.0)
[2018-09-02 05:07] LABS: BE(vivo) -3.7 mmol/L (-2 to +3); HCO3 22.7 mmol/L (22.0-26.0); PCO2 47.4 mmHg (35.0-45.0); PO2 179.5 mmHg (80.0-100.0); pH 7.298 (7.360-7.450); sO2 99.1 % (92.0-98.0)
[2018-09-02 05:21] LABS: ALBUMIN 1.7 g/dL (3.4-5.0); CALCIUM 6.1 mg/dL (8.5-10.1); CREATININE 5.4 mg/dL (0.7-1.3); PHOSPHORUS 6.2 mg/dL (2.5-4.9); POTASSIUM 4.3 mmol/L (3.5-5.1)
--- NOTE | 2018-09-02 06:55 | NUR ---
ASSUMED PATIENT CARE AT 1900. PATIENT LYING IN BED ON THE VENTILATOR. LEVOPHED AND AILYN-SYNEPHRINE IS INFUSING. PATIENT IS UNRESPONSIVE AND HAS NO GAG/COUGH/CORNEAL REFLEX. FAMILY UPDATED ON THE CARE PLAN. NEURO IS CONSULTED. ABDOMEN APPEARS TO BE LARGER. DR COTTRELL NOTIFIED ABOUT THIS AND HIS TOTAL URINE OUTPUT FOR THIS SHIFT IS 100 ML. NO ORDERS RECEIVED. PATIENT IS NOT PROGRESSING AND IS NOW A NO CODE. FAMILY IS TO MAKE DECISION TODAY ON WHETHER TO CONTINUE AGRESSIVE TREATMENT OR WITHDRAW CARE DEPENDENT UPON HIS RESULTS FROM THE BRAIN SCAN.
--- NOTE | 2018-09-02 11:58 | NUR ---
PATIENT INTUBATED AT SEDATED WITH NO NEUROLOGICAL STATUS AT THIS TIME. PUPILS ARE FIXED, NO RESPONSE TO PAIN, NO GAG REFLEX. PATIENT ON MULTIPLE PRESSURES THIS AM. PATIENT FAMILY HAS DECIDED TOP WITHDRAWL CARE AT THIS TIME. ALL DRIPS HAVE BEEN STOPPED. WITH EXTUBATE HER SOON. FAMILY AT BEDSIDE. NO CONCERNS AT THIS TIME. WILL CONTINUE TO MONITOR AND CARE PER PLAN OF CARE.
[2018-09-02 12:08] LABS: SYPHILIS AB Negative (Negative)
--- NOTE | 2018-09-02 16:05 | NUR ---
PATIENT TIME OF 1334. PATIENT WAS PRONOUNCED BY 2 RN'S. ALL PROVIDERS ARE AWARE. PATIENT FAMILY AT BEDSIDE. PATIENT CLEANED AND COMFORTABLE . NO FURTHER CONCERNS AT THIS TIME. WILL CONTINUE TO MONITOR.
--- NOTE | 2018-09-03 10:45 | HC ---
[facility] [address] [place] [address] CONSULTATION Name: GRACE PEPE Room #: 236-P [facility] M.R.#: [id number] Admission: 08/29/18 ������������������ Attend Phys: Zuleyka Godinez Discharge: 09/02/18 ������������������ Date of : 50 Report #: [id number] THIS REPORT FOR: //name// CC: NO PCP Barry Hernandez TYPE OF REPORT: Infectious diseases consultation. REASON FOR CONSULTATION: I was asked to evaluate concerning septic shock and Gram-positive bacilli bacteremia. HISTORY OF PRESENT ILLNESS: The patient was a 68-year-old eid gentleman who was 15 when he developed acute abdominal pain. Placed a fentanyl patch to his skin and subsequently became unresponsive. His partner performed CPR and EMS was called. He had multiple cardiac arrests, requiring CPR, intubated and placed on mechanical ventilation. Had evidence of some cardiac ischemia. Imaging studies showed free air in the soft tissues of the perineum and extensive inflammatory reaction and injury to the anus and rectum consistent with perforation. There was no evidence by CT scan for intraabdominal air or fluid. The patient has remained on vasopressors. He is on 65% FiO2. His chest x-ray showed bilateral pulmonary infiltrates, right upper lobe, left lower lobe, most predominant with some medial right lower lobe changes as well. It was suspected he aspirated during his resuscitation measures. The patient is in a discordant HIV relationship. He takes prepped on a regular basis. Unclear if the patient has any other comorbidities, although imaging studies showed evidence of cardiac stents, peripheral vascular disease and he has had elevated blood glucose levels during his stay so far. The patient unable to give any details of the review of systems. He does have a right IJ catheter in place. Indwelling Leone catheter in place. An OG tube for suctioning. He is on cooling protocol post-cardiac arrest. ALLERGIES: None known. MEDICATIONS: As noted on his MAR, which were reviewed. PAST MEDICAL HISTORY: Not available. FAMILY HISTORY: Not available. SOCIAL HISTORY: Not available. PHYSICAL EXAMINATION: GENERAL: Hypothermic, heart rate 122, respiratory rate 20 and blood pressure 122/54. He is intubated on FiO2 of 65%. He has a right IJ catheter in place with no erythema or drainage. HEENT: Conjunctival injection and some scleral edema to the left. Pupil on the [facility] [address] [place] [address] CONSULTATION Name: GRACE PEPE Concha Room #: 236-P [facility] IN .R.#: [id number] Admission: 08/29/18 ������������������ Attend Phys: Zuleyka Godinez Discharge: 09/02/18 ������������������ Date of : 50 Report #: [id number] left was very sluggish to reaction. His right pupil did react to light. Nasal passages were clear. Mouth without mucositis or lesion. NECK: Supple. He had no rashes or decubitus noted. No palpable adenopathy. LUNGS: Coarse bilaterally with no rub. CARDIOVASCULAR: Heart was tachycardic and regular. No gallop or murmur. ABDOMEN: Mildly distended. No hepatosplenomegaly or mass appreciated. GENITOURINARY: External genitalia without lesion or mass and indwelling Leone catheter. Perianal examination noticed no lesions. There was no crepitance. No mass was palpable to the perineum. He had odorous thin brown liquid stool present at the rectum. Rectal tone was absent. EXTREMITIES: Without clubbing, cyanosis or edema. The patient was sedated, did not move spontaneously or reactive pain. LABORATORY STUDIES: Sodium 143, potassium 3.7, bicarbonate 24, creatinine 2.4 and lactate 2.4. Hemoglobin 13; platelet count 122,000 and white count initially 13.8, now 2.4 with 59% segs and 25% bands. CPK was 45. Troponin 0.29. Urinalysis unremarkable. Blood cultures 1 of 2 showing gram-positive bacilli. Sputum and urine cultures are pending. RADIOLOGICAL DATA: Chest x-ray, right upper lobe, left lower lobe and right lower lobe infiltrates present. CT of the head was negative. CT of the abdomen showed right medial lower lobe infiltrate and left lower lobe infiltrate with coronary artery disease and stents evident along with peripheral vascular disease with endovascular calcium deposits. He has thickening of the rectum and anus with air present consistent with perforation. Perirectal involvement with no definite abscess. All the gas and inflammatory change was extraperitoneal. IMPRESSION: A 68-year old with anorectal trauma and perforation resulting in cardiac arrest with multiorgan system failure. He has evidence of anoxic encephalopathy, acute kidney injury, perineal inflammation status post perforation, aspiration pneumonia with respiratory failure, septic shock. Unclear as to sexually transmitted disease or human immunodeficiency virus status at this point. RECOMMENDATIONS: We will continue Zosyn for gram-negative aerobic and anaerobic coverage with noting gram-positive bacilli in the blood stream. I am suspecting the source of his bacteremia is from his perineum and ischemic injured anorectum. We will await final culture results. Continue full support for anoxic encephalopathy and septic shock. Screen for STDs and adjust medications appropriately. The patient has GI and General Surgery following along closely for any further potential surgical intervention. ��������������������������������������������� <ELECTRONICALLY SIGNED> ���������������������������������������� By: Ernie Mcneil MD ��������������������������������������������� 09/03/18 1045 [id number] Ernie Mcneil MD /nt
== END 2018-09-02 17:15 | DRG 871 ==
LOC: ER 22:10 → EROBS 22:42 → ICU 22:42
PROVIDERS: Emergency Medicine; Hospitalist; Internal Medicine Pulmonary Disease; Nurse Practitioner Family; Specialist; ADMIT Family Medicine
PROC: 02H633Z Insertion of Infusion Device into Right Atrium, Percutaneous Approach (ICD-10-PCS; principal; 2018-08-29)
PROC: 0BH17EZ Insertion of Endotracheal Airway into Trachea, Via Natural or Artificial Opening (ICD-10-PCS; 2018-08-30)
PROC: 5A1945Z Respiratory Ventilation, 24-96 Consecutive Hours (ICD-10-PCS; 2018-08-30)
DX: A41.50 Gram-negative sepsis, unspecified (principal); J96.01 Acute respiratory failure with hypoxia; J69.0 Pneumonitis due to inhalation of food and vomit; R65.21 Severe sepsis with septic shock; K72.00 Acute and subacute hepatic failure without coma; J96.02 Acute respiratory failure with hypercapnia; I21.A1 Myocardial infarction type 2; N17.9 Acute kidney failure, unspecified; G93.1 Anoxic brain damage, not elsewhere classified; E87.2 Acidosis; S36.63XA Laceration of rectum, initial encounter; K62.5 Hemorrhage of anus and rectum; D64.9 Anemia, unspecified; I46.9 Cardiac arrest, cause unspecified; Z51.5 Encounter for palliative care; E87.6 Hypokalemia; E11.65 Type 2 diabetes mellitus with hyperglycemia; E11.51 Type 2 diabetes mellitus with diabetic peripheral angiopathy without gangrene; X58.XXXA Exposure to other specified factors, initial encounter; Y93.89 Activity, other specified; Y92.89 Other specified places as the place of occurrence of the external cause; Y99.8 Other external cause status
CPT/HCPCS: 10078